=== PATIENT | male | born 1990 | race Caucasian/White ===

== ENCOUNTER 2018-06-01 19:18 | Emergency (ER) | payer OTHER ==
[2018-06-01] MEDS ORDERED: ACETAMINOPHEN 500 MG TAB PO ONE (19:33)
--- NOTE | 2018-06-01 20:20 | EDPHY ---
H & P Stated Complaint: sore throat and fever x 4 days Time Seen by Provider: 06/01/18 19:20 HPI/ROS: 27-year-old male presents complaining of sore throat, cough, postnasal drip, body aches as well as fever and chills. He has had the symptoms for approximately 1 week. Review of systems As per HPI General positive fever positive chills no weakness HEENT no eye pain no eye discharge. No eye redness, no sore throat Respiratory positive cough, no shortness of breath Cardiac no chest pain, no peripheral edema GI no abdominal pain, no diarrhea, no constipation, no nausea, no vomiting no flank pain, no hematuria, no dysuria Musculoskeletal positive myalgias, no joint pain Heme no easy bruising, no easy bleeding Endo no polyuria, no polydipsia Skin no rashes, no pruritus Neuro no syncope, no dizziness, no headaches Psych is no suicidal ideation, no homicidal ideation Source: Patient Exam Limitations: No limitations - Personal History Current Tetanus Diphtheria and Acellular Pertussis (TDAP): Yes - Medical/Surgical History Hx Asthma: No Hx Chronic Respiratory Disease: No Hx Diabetes: No Hx Cardiac Disease: No Hx Renal Disease: No Hx Cirrhosis: No Hx Alcoholism: No Hx HIV/AIDS: No Hx Splenectomy or Spleen Trauma: No - Family History Significant Family History: No pertinent family hx - Social History Smoking Status: Former smoker Alcohol Use: Occasionally Drug Use: None - Physical Exam Exam: 27-year-old male Alert and oriented nontoxic appearance, no acute distress, febrile 38 Atraumatic normocephalic Extraocular muscles intact, anicteric Nares mild yellowish discharge Oropharynx mild erythema no tonsillar swelling no exudate no uvular deviation, tolerating own secretions Large amount of off-white mucous in posterior pharynx consistent with postnasal drip Neck supple no lymphadenopathy Lungs clear to auscultation bilaterally Heart regular rate and rhythm Abdomen normoactive bowel sounds soft nontender Extremities no cyanosis clubbing or edema Skin no rash Constitutional: Initial Vital Signs Temperature (C) 38.3 C 06/01/18 19:30 Heart Rate 90 06/01/18 19:30 Respiratory Rate 16 06/01/18 19:30 Blood Pressure 119/73 06/01/18 19:30 O2 Sat (%) 94 06/01/18 19:30 O2 Delivery Mode Room Air Allergies/Adverse Reactions: Penicillins Allergy (Unknown, Verified 12/06/12 13:51) Home Medications: Medication Instructions Recorded NK [No Known Home Meds] 06/01/18 Medical Decision Making - Diagnostics Imaging Results: Imaging Impressions Chest X-Ray 06/01/18 20:21 Impression: No acute cardiopulmonary process. ED Course/Re-evaluation: Patient seen and evaluated for cough sore throat body aches fevers chills. Patient given 1 g Tylenol p.o. Rapid strep negative Influenza negative Chest x-ray negative Impression Viral syndrome Plan Discharge home Symptomatic/supportive care Follow-up with primary as needed Differential Diagnosis: Differential diagnosis considered but not limited to: URI, bronchitis, pharyngitis, strep throat, influenza, viral syndrome - Data Points Medications Given: Discontinued Medications Acetaminophen (Tylenol) 1,000 mg PO EDNOW ONE Stop: 06/01/18 19:34 Last Admin: 06/01/18 19:38 Dose: 1,000 mg Point of Care Test Results: Influenza PCR Flu Nasal Swab Collection Date 06/01/18 Flu Nasal Swab Collection Time 19:40 Influenza A Result Not Detected Influenza B Result Not Detected Strep Strep Throat Swab Collection 06/01/18 Date Strep Throat Swab Swab 19:26 Collection Time Strep Result Not Detected Departure - Departure Disposition: Home, Routine, Self-Care Clinical Impression: Viral syndrome Condition: Good Instructions: Viral Syndrome (ED) Referrals: Dakotah Rucker MD [Primary Care Provider] - As per Instructions
[2018-06-01 20:48] VITALS: BP 103/65
== END 2018-06-01 20:45 | disposition home or self-care (01) ==
LOC: CED 19:18
DX: B34.9 Viral infection, unspecified (principal); Z87.891 Personal history of nicotine dependence
CPT/HCPCS: 71046-PO